=== PATIENT | male | born 2005 | race Hispanic/Latino ===

== ENCOUNTER 2023-01-28 09:52 | Day surgery (SDC) | payer OTHER, MEDICAID, SELFPAY ==
[2023-01-22 09:09] VITALS: BMI 27.1
[2023-01-28] VITALS (8 sets, daily range): BP systolic 124–141; BP diastolic 70–95; PULSE 72–95; RESP 12–18; TEMP 36.1–36.7; O2SAT 98–100; BMI 26.4
[2023-01-28] MEDS: LACTATED RINGERS 1,000 ML 150 ML IV (10:33)
--- NOTE | 2023-01-28 10:56 | PM.PREOP ---
Pre-operative Note Interval Note History & Physical reviewed/Exam performed by Physician: Yes Changes to H&P: No
--- NOTE | 2023-01-28 10:59 | SUR.PREOP ---
Block start time [1051] . Monitoring initiated and maintained throughout procedure. Oxygen and medications given per anesthesiologist instructions. Patient remained stable throughout procedure, no adverse reactions noted. Block end time [1100].
[2023-01-28] MEDS: ACETAMINOPHEN IV 1,000 MG/100 ML VIAL 400 MG IV (11:05)
[2023-01-28] MEDS: CEFAZOLIN 2 GM/100 ML PREMIX 100 ML IV (11:10)
[2023-01-28] MEDS: TRANEXAMIC ACID 1,000 MG VIAL 1000 MG INJ (11:20)
--- NOTE | 2023-01-28 12:15 | SUR.OPER ---
Supine on padded OR bed. Pillow under head, arms secured on padded armboards <90 degree abduction. Safety belt across torso. RIGHT leg secured with tape over blanket over lower leg. Operative leg PREPPED AND DRAPED IN FIELD.
[2023-01-28] MEDS: LACTATED RINGERS 1,000 ML 42 ML IV (12:28)
[2023-01-28] MEDS: BUPIVACAINE 0.25% (PF) 30 ML, EPINEPHrine 0.15 MG INJ (12:46)
--- NOTE | 2023-01-28 13:32 | P.OP_ITS ---
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 We discussed indications for ACL reconstruction in clinic. Risks and benefits of surgery were discussed again including the risk of infection, damage to internal structures, bleeding, nerve injury, instability, need for revision surgery, blood clots, anesthesia and . No guarantees were made regarding outcomes. Patient expressed understanding and accepted these risks and wished to go forward with surgery and consent was signed. Surgeon: David Long Winterizer: Ronak Madrid Anesthesia Type: General Operative Notes Findings: Findings: Exam under anesthesia: 2B Nohemi's with positive anterior drawer and positive visit shift, slightly wider on valgus force Patellofemoral joint: Normal articulation and cartilage Medial and lateral gutters: No loose bodies noted Medial compartment: Medial meniscus is intact and medial tibial plateau with normal cartilage, medial femoral condyle also with normal cartilage Intercondylar notch: Intact PCL, incompetent ACL with empty lateral wall sign Lateral compartment: Lateral meniscus intact, lateral tibial plateau with normal cartilage, lateral femoral condyle also was normal cartilage Closure Type: primary Specimen(s): none sent Prosthetic devices, grafts, tissues, transplants, or devices: Implants: Arthrex bioabsorbable fast thread 7x20, 8x30 Estimated Blood Loss (mL): 20 Blood products transfused: none Tourniquet time (min): 104 Procedure in detail: Description of operation: Patient was identified in the preoperative area. The correct knee was marked with my initials. The patient was then brought into the operating room. A surgical pause was confirmed in the correct site of surgery was again identified. The patient was given perioperative IV antibiotics followed by induction of general anesthesia. A tourniquet was applied to the upper thigh. The lower extremity was then prepped and draped in a standard sterile fashion. After exam under anesthesia revealed an ACL insufficiency, the decision was made to proceed with ACL reconstruction. The leg was exsanguinated with an Esmarch bandage and the tourniquet was inflated to 250 mm hg. A longitudinal incision was made over the medial aspect of the patella tendon after pre-injection with Marcaine. Thick skin flaps were created. The paratenon was incised in the midline. A central 10 mm was harvested along with a bone plug on both sides. The graft was then taken to the back table and prepared by the physician criminal legal assistant. The patellar tendon was closed with 0 Vicryl, buried, simple interrupted sutures. A separate anterolateral portal was made. An anterior medial portal was made within the longitudinal incision. Once diagnostic arthroscopy was completed, the tourniquet was deflated for a total time of 25 minutes. There was a complete tear of the functional fibers of the anterior cruciate ligament. The remnant of the ligament was debrided. Minimal notchplasty was performed. The tibial anterior cruciate ligament guide was then inserted with the angle set at 55?. The tibial tunnel was then drilled with a 10 mm Reamer. A 7 mm [id number] femoral guide was then inserted through the medial portal. With the knee in 90? of flexion, a provisional víctor was made with a Beath pin. This position was then verified with the arthroscope in the anterior medial portal. Knee was then hyperflexed to approximately 120? and the guide was then used to pass the Beath pin through the medial portal. The pin exited anterior to the midline of the lateral thigh. A 10 Reamer was then used to drill the femoral tunnel. A shuttling suture was passed in the distal tail was pulled through the tibial tunnel. Bony debris was removed. There was an adequate back wall. A notch was used. The final autograft was then passed. Guide pin was inserted, followed by a 7 mm tap. The femoral side was fixed with a 8 by 20 mm BioComposite interference screw. The arthroscope was then removed. The knee was cycled a few dozen times to condition the graft. The solitary show 2 mm of lengthening in the terminal 0? of knee extension. The knee was then placed in 5? of knee flexion. A gentle posterior drawer force was applied with manual graft tension. The guide pin was inserted and a 7 mm tap was used. A 10 x 30 mm Arthrex Fast Fix BioComposite interference screw was used. This restored excellent stability with Nohemi's and anterior drawer testing. The arthroscope was reinserted. The graft revealed excellent tension. There is no proud aspect of the screw. The knee was then suctioned dry. Any excess tibial bone plug was removed. The patellar and bone defect was grafted with excess tibial plug harvest. The paratenon was then closed. A layered skin closure was performed, followed by sterile dressings, cold therapy, and a hinged knee brace locked in full extension. The patient tolerated the procedure well without complications. Assisting participation: This operation could not have been safely performed (without compromising the technical results or length of the procedure) without the assistance of a skilled regional vice president surgical sales. The regional vice president surgical sales was medically necessary for proper positioning, retraction and manipulation of instruments, proper exposure, graft prep, and manipulation of tissue. Complications: none Post-operative Condition: stable Plan for aftercare: Postop: Note, patient will remain in the brace for a total of 6 weeks even at night due to his increased valgus laxity and grade III MCL ana rosa. Weight- bearing as tolerated with hinged knee brace locked in extension and with crutches for the 1st 2 weeks. Wear the brace locked in extension at night for the 1st 2 nights. Okay to unlock the brace when at rest otherwise. Aquacel dressing to remain on for 2 weeks. This will be removed in clinic as well as the underlying melina. Okay to shower with soap and water running over top of the dressing. NOTE: If water gets underneath the dressing, please remove the dressing and replace with clean dry 4x4s.
[2023-01-28] MEDS: HYDROMORPHONE 1 MG INJ IV (13:42)
[2023-01-28] MEDS: OXYCODONE IR 5 MG TABLET PO ×2 (13:51→14:36)
[2023-01-28] MEDS: hydrOXYzine 50 MG/ML INJ 25 MG IM (13:53)
== END 2023-01-28 15:27 | disposition home or self-care (01) ==
PROVIDERS: Referring Provider Physician Assistant Medical; Visit Provider Orthopaedic Surgery
PROC: (CPT 29888; principal; 2023-01-28 11:15)
DX: S83.512A Sprain of anterior cruciate ligament of left knee, initial encounter (principal); Y93.66 Activity, soccer; G89.18 Other acute postprocedural pain
CPT/HCPCS: 29888; 64450; C1776; J0131; J0171; J0690; J1100; J1170; J1885; J2250; J2405; J2704; J3010; J3410